=== PATIENT | male | born 1980 | race Caucasian/White ===

== ENCOUNTER 2024-08-20 10:34 | Outpatient (AMB) | payer BC, SELFPAY ==
--- NOTE | 2024-08-20 10:34 | A.OFFPC_ITS ---
Vital Signs 08/20/24 10:41 Height 6 ft 1 in Weight 204 lb BMI 26.9 BP 126/72 Blood Pressure Location Rt brachial Position Sitting Respiration 16 Pulse 66 Pulse Source Pulse Oximeter Pulse Oximetry (%) 99 Oxygen Delivery Method Room Air Intake Visit Reasons: SAMANTHA FROM [facility] Intake Note: New patient visit Allergies No Known Allergies Allergy (Verified 08/20/24 10:35) Tobacco use date assessed: 08/20/24 Dental Screening Dental Screen Date: 08/20/24 Did you have a dental visit in the last 12 months?: Yes Did you have a dental problem in the last 6 months where you did not have access to dental care?: No Was dental information given to patient?: Patient has dentist HPI SAMANTHA FROM [facility] HPI Details Patient is a 44-year-old male who [facility] [place] He is transferring from [facility]. He was last seen last year for a physical. He does have some fatigue but thinks that this is likely related to lifestyle and noting work stressors and being busy with the family. He exercises and eats very healthy. He would like all of his labs checked. He has had tick bites in the past and also would like to be checked for Lyme disease. He also would like his prostate test is despite being asymptomatic. Believes that some people in his family have had prostate cancer but is not very close with his family members. He has a history of celiac disease in his completely gluten free. He would like a referral to dermatology for skin checks. [facility] Medical History (Updated 08/20/24 @ 11:05 by Gisselle Ramirez PA-C) Celiac disease Surgical History (Updated 08/20/24 @ 10:36 by Melony Delaney CMA) History of vasectomy Family History (Updated 08/20/24 @ 10:36 by Melony Delaney CMA) Other Cancer of lung Social History (Updated 08/20/24 @ 10:36 by Melony Delaney CMA) Use of substances other than those prescribed or required for medical reasons: No Questionnaire PHQ-9 Over the last 2 weeks, how often have you been bothered by any of the following problems? 1. Little interest or pleasure in doing things: not at all 2. Feeling down, depressed, or hopeless: not at all 3. Trouble falling or staying asleep, or sleeping too much: not at all 4. Feeling tired or having little energy: several days 5. Poor appetite or overeating: not at all 6. Feeling bad about yourself - or that you are a failure or have let yourself or your family down: not at all 7. Trouble concentrating on things, such as reading the newspaper or watching television: not at all 8. Moving or speaking so slowly that other people could have noticed. Or the opposite - being so fidgety or restless that you have been moving around a lot more than usual: not at all 9. Thoughts that you would be better off or of hurting yourself in some way: not at all Total score: 1 Depression Screening Interpretation: Negative Depression Screening Done: Yes 75313 - PHQ-9 Billing: Yes Source: Developed by Drs. Tera Somers, Thong Tanner and colleagues, with an educational destin from [employer]. AUDIT C Alcohol Use Questionnaire (AUDIT-C) 1. How often do you have a drink containing alcohol?: Monthly or less 2. How many drinks containing alcohol do you have on a typical day when you are drinking?: 1 or 2 3. How often do you have six or more drinks on one occasion?: Never Total Score: 1 JOSE-7 AMB Questionnaire JOSE-7 Feeling nervous, anxious, or on edge: 0 = Not at all Not being able to stop or control worryin = Not at all Worrying too much about different things: 0 = Not at all Trouble relaxin = Not at all Being so restless that it is hard to sit still: 0 = Not at all Becoming easily annoyed or irritable: 0 = Not at all Feeling afraid as if something awful might happen: 0 = Not at all Total JOSE-7 score (0-4 normal; 5-9 mild; 10-14 moderate; 15-21 severe): 0 Source: Developed by Drs. Tera Somers, Thong Tanner and colleagues, with an educational destin from [employer]. JOSE-7 Assessment Billing JOSE-7 Assessment Tool: JOSE-7 Assessment 32806 Physical exam (Primary Care) Depression Screening Interpretation: Negative Const Orientation/consciousness: patient oriented x3 HENMT Ears: hearing grossly normal bilaterally Neck Thyroid: Thyroid normal Lymphatic: no lymphadenopathy noted Resp Auscultation: clear to auscultation bilaterally Cardio Rate: regular rate Rhythm: regular rhythm Heart sounds: S1 normal heart sound present and S2 normal heart sound present GI Inspection: Yes normal to inspection Palpation (GI): Soft to palpation and Other GI palpation findings present (nontender, no cva tenderness) Auscultation: normoactive bowel sounds Rectal Exam - Male: Yes deferred Skin General skin exam: no rashes or lesions noted Neuro General: patient oriented x3, gait normal and no focal motor deficits Coding Level of Care Code Est Pt Level 4 (29771) Complex EM visit Add On G2211 Diagnoses Celiac disease K90.0 Family hx of prostate cancer Z80.42 Fatigue R53.83 Additional Codes JOSE-7 Assessment Billing - JOSE-7 Assessment Tool: JOSE-7 Assessment 32004 ([id number]) Assessment & Plan Assessment & Plan (1) Celiac disease: Code(s): K90.0 - Celiac disease Category: Medical Plan: Controlled being gluten free (2) Family hx of prostate cancer: Code(s): Z80.42 - Family history of malignant neoplasm of prostate Category: Medical Plan: Labs ordered (3) Fatigue: Code(s): R53.83 - Other fatigue Category: Medical Plan: Labs ordered. We will follow up pending test results. Patient understands and agrees with this plan. Orders: Orders Complete Blood Count Auto Diff Today K90.0 - Celiac disease, Z01.89 - Encounter for other specified special examinations, Z80.42 - Family history of malignant neoplasm of prostate Lipid Panel Today K90.0 - Celiac disease, Z01.89 - Encounter for other specified special examinations, Z80.42 - Family history of malignant neoplasm of prostate Vitamin B12 and Folate Today K90.0 - Celiac disease, Z01.89 - Encounter for other specified special examinations, Z80.42 - Family history of malignant neoplasm of prostate Ferritin Today K90.0 - Celiac disease, Z80.42 - Family history of malignant neoplasm of prostate IRON PROFILE Today K90.0 - Celiac disease, Z80.42 - Family history of malignant neoplasm of prostate Magnesium Today K90.0 - Celiac disease, Z80.42 - Family history of malignant neoplasm of prostate Testosterone, Free/Total Today R53.83 - Other fatigue Comprehensive [place]. Panel Fast Today K90.0 - Celiac disease, Z01.89 - Encounter for other specified special examinations, Z80.42 - Family history of malignant neoplasm of prostate TSH reflex Free T4 Today K90.0 - Celiac disease, Z01.89 - Encounter for other specified special examinations, Z80.42 - Family history of malignant neoplasm of prostate Prostate Specific Antigen Scr Today K90.0 - Celiac disease, Z01.89 - Encounter for other specified special examinations, Z80.42 - Family history of malignant neoplasm of prostate Lyme IgG/IgM w/reflex to WB Today K90.0 - Celiac disease, W57.XXXA - Bitten or stung by nonvenomous insect and other nonvenomous arthropods, initial encounter, Z80.42 - Family history of malignant neoplasm of prostate UA CC w/rflx Micro + Cult Today K90.0 - Celiac disease, Z13.220 - Encounter for screening for lipoid disorders, Z80.42 - Family history of malignant neoplasm of prostate Referrals Dermatology Referral D22.9 - Melanocytic nevi, unspecified
[2024-08-20 10:41] VITALS: BP 126/72; PULSE 66; RESP 16; O2SAT 99; BMI 26.9
== END 2024-08-20 11:08 | disposition home or self-care (01) ==
PROVIDERS: PCP Physician Assistant; Visit Provider Physician Assistant
DX: K90.0 Celiac disease (principal); Z80.42 Family history of malignant neoplasm of prostate; R53.83 Other fatigue

== ENCOUNTER → 2024-08-20 10:34 | Outpatient (BNVA) | payer BC, SELFPAY | PROVIDERS: PCP Physician Assistant; Visit Provider Physician Assistant | DX: K90.0 Celiac disease (principal); R53.83 Other fatigue; Z80.42 Family history of malignant neoplasm of prostate | CPT/HCPCS: 96127 ==

== ENCOUNTER 2024-09-09 09:22 | Outpatient (REF) | payer BC, SELFPAY ==
[2024-09-09 11:18] LABS: MANUAL DIFF FLAG NO
[2024-09-09 11:23] LABS: Basophils Percent Auto 0.3 % (0-2); Eosinophils Absolute Auto 0.1 X10*3/uL (0.0-0.4); Eosinophils Percent Auto 1.7 % (0-4); Hemoglobin 14.9 g/dl (14.0-18.0); Imm Gran Abs Auto 0.01 X10*3/uL (0.00-0.03); Imm Gran Pct Auto 0.3 % (0.0-0.4); Lymphocytes Absolute Auto 1.3 X10*3/uL (1.2-4.9); Lymphocytes Percent Auto 35.8 % (20-40); Mean Corpuscular HGB Conc 32.4 g/dl (31.0-36.0); Mean Corpuscular Hemoglobin 29.2 pg (27.0-33.0); Mean Corpuscular Volume 90.2 fL (80.0-98.0); Mean Platelet Volume 11.1 fL (9.4-12.4); Monocytes Absolute Auto 0.4 X10*3/uL (0.1-1.2); Monocytes Percent Auto 12.1 % (2-11); Neutrophils Absolute Auto 1.8 x10*3/uL (2.0-8.3); Neutrophils Percent Auto 49.8 % (45-73); Platelet Count 192 X10*3/uL (160-400); Red Cell Distribution Width 12.7 % (11.0-16.0); White Blood Count 3.6 X10*3/uL (4.8-10.8)
[2024-09-09 11:36] LABS: Appearance Urine Clear; Color Urine Yellow; Glucose Urine UA Negative (Negative); Leukocyte Esterase Urine Negative (Negative); Nitrite Urine Negative (Negative); Urine Blood Negative (Negative); Urine Ketones Negative (Negative); Urine Protein Negative (Neg-Trace)
[2024-09-09 12:14] LABS: Alanine Aminotransferase 23 U/L (0-40); Albumin Level 4.3 g/dL (3.5-5.0); Alkaline Phosphatase 86 U/L (39-117); Anion Gap 11 (12-20); Aspartate Amino Transferase 25 U/L (5-37); Bilirubin Total 0.7 mg/dL (0.0-1.0); Blood Urea Nitrogen 15 mg/dL (9-16); Calcium 8.9 mg/dL (8.4-10.2); Carbon Dioxide 31 mmol/L (22-29); Chloride 102 mmol/L (96-108); Cholesterol 171 mg/dL (<200); Estimated Glomerular Filt Rate > 60; Folate 15.5 ng/mL (> or = 4.0); Glucose Fasting 90 mg/dL (60-99); HDL Cholesterol 59 mg/dL (>40); Iron 151 mcg/dL (45-160); LDL Cholesterol Calculated 99 mg/dL (<100); Magnesium 2.2 mg/dL (1.6-2.6); Percent Iron Saturation 54 % (15-50); Potassium 3.5 mmol/L (3.3-5.1); Prostate Specific Antigen Scr 0.42 ng/mL (<0.05-4.0); Sodium 140 mmol/L (135-145); Total Iron Binding Capacity 279 mcg/dL (228-428); Total Protein 7.7 g/dL (6.5-8.0); Triglycerides 66 mg/dL (<150); Unsaturated Iron Binding 128 ug/dL; Vitamin B12 1181 pg/mL (200-900)
[2024-09-09 12:28] LABS: Ferritin 324 ng/mL (20-250); TSH reflex Free T4 0.97 uIU/mL (0.32-4.0)
[2024-09-11 03:08] LABS: Lyme Abs Screen <0.90 index
[2024-09-14 15:54] LABS: Testosterone, Free 108.4 pg/mL (35.0-155.0); Testosterone, Total 797 ng/dL (250-1100)
== END 2024-09-09 09:23 | disposition home or self-care (01) ==
LOC: HO.WFDLDS 09:22
PROVIDERS: Visit Provider Physician Assistant
DX: Z01.89 Encounter for other specified special examinations (principal); K90.0 Celiac disease; Z80.42 Family history of malignant neoplasm of prostate; R53.83 Other fatigue; W57.XXXA Bitten or stung by nonvenomous insect and other nonvenomous arthropods, initial encounter; Z13.220 Encounter for screening for lipoid disorders; Z12.5 Encounter for screening for malignant neoplasm of prostate
CPT/HCPCS: 36415; 80053; 80061; 81003; 82607; 82728; 82746; 83540; 83735; 84153; 84402; 84403; 84443; 85025; 86617; 86618